=== PATIENT | male | born 1965 | race Caucasian/White ===

== ENCOUNTER 2018-11-05 19:00 | Emergency (ER) | payer OTHER ==
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
== END 2018-11-05 19:44 ==
LOC: ER FS 19:02
DX: F10.129 Alcohol abuse with intoxication, unspecified (principal)

== ENCOUNTER 2019-01-24 20:32 | Emergency (ER) | payer OTHER ==
[~2019-01-24] VITALS: Ht 177.8 cm; Wt 81.6 kg
--- OUTSIDE RECORDS SUMMARY | 2019-01-24 20:36 | XMS REPORT | Continuity of Care Document ---
Author Organization Unknown Address Unknown Allergies There is no data. Medications There is no data. Problems There is no data. Procedures There is no data. Results There is no data. Encounters ACCT No. Visit Date/Time Discharge Status Pt. Type Provider Facility Loc./Unit Complaint [id number] 12/25/2018 09:20:00 12/25/2018 23:59:59 C[facility] Out[facility] I[facility]
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
[2019-01-24] MEDS ORDERED: KETOROLAC 60 MG/2 ML VIAL IM ONE (20:45)
--- NOTE | 2019-01-24 21:26 | Diagnostic Imaging Report ---
INDICATION: Rib pain. Five views were obtained. FINDINGS: Right lung is clear. There is no pleural effusion or pneumothorax. There are no displaced right rib fractures. IMPRESSION: No acute cardiopulmonary abnormality No displaced right rib fractures Dictated by: Dictated on workstation # [id number]
[2019-01-24] MEDS ORDERED: LORA-407 PO (21:33)
[2019-01-24 21:44] VITALS: BP 142/90
== END 2019-01-24 21:47 ==
LOC: EDUNIT# 20:32 → ER FS 20:34
DX: R07.81 Pleurodynia (principal); F10.20 Alcohol dependence, uncomplicated; E78.00 Pure hypercholesterolemia, unspecified; R40.2142 Coma scale, eyes open, spontaneous, at arrival to emergency department; R40.2252 Coma scale, best verbal response, oriented, at arrival to emergency department; R40.2362 Coma scale, best motor response, obeys commands, at arrival to emergency department; F17.210 Nicotine dependence, cigarettes, uncomplicated
CPT/HCPCS: 71101